=== PATIENT | female | born 1965 | race African-American/Black ===

== ENCOUNTER → 2019-08-15 | Outpatient (CLI) | payer BC ==
[~2019-08-15] MED LIST: REGADENOSON 0.4 MG/5 ML DISP.SYRIN. IV ONE
--- NOTE | 2019-08-15 10:22 | CARD ---
MR#: [id number] Date of Study: 08/15/2019 Ordering Physician: BRAEDEN ANNE, Referring Physician: BRAEDEN ANNE, Tech: Sol Gaona LEONIDAS APPROVED REPORT EXAM: Two-dimensional and M-mode echocardiogram with Doppler and color Doppler. Other Information Quality : Good/low windowHR: 74bpm Rhythm : NSR INDICATION ALMEIDA. Hx: HTN, HLP, DM, COPD. 2D DIMENSIONS RVDd3.3 (2.9-3.5cm)IVSd1.0 (0.7-1.1cm) LVDd3.6 (3.9-5.9cm)LVOT Diameter1.9 (1.8-2.4cm) PWd0.9 (0.7-1.1cm)LVDs2.5 (2.5-4.0cm) FS (%) 30.7 %SV31.8 ml LVEF(%)59.3 (>50%) Aortic Valve AoV Peak Alfonso.96.5cm/Nancy Peak GR.3.7mmHg LVOT Peak Alfonso.74.4cm/sAVA (VMAX)2.19cm2 Mitral Valve MV E Jcbadvyk24.4cm/sMV DECEL FCWT169pe MV A Nnndkdki25.3cm/sE/A Ratio0.8 MV A Otkwwivo923gm Pulmonary Valve PV Peak Lisrqenw67.1cm/s Tricuspid Valve RAP [id number] Pulmonary Vein S1 Csdjbgoc33.3cm/sD2 Twklcvcb96.6cm/s LEFT VENTRICLE The left ventricle is normal size. There is normal left ventricular wall thickness. The left ventricu lar systolic function is normal and the ejection fraction is within normal range. The Ejection Fracti on is 60-65%. There is normal LV segmental wall motion. Transmitral Doppler flow pattern is Grade I-a bnormal relaxation pattern. RIGHT VENTRICLE The right ventricle is normal size. The right ventricular systolic function is normal. ATRIA The left atrium size is normal. The right atrium size is normal. The interatrial septum is intact wit h no evidence for an atrial septal defect or patent foramen ovale as noted on 2-D or Doppler imaging. AORTIC VALVE The aortic valve is normal in structure and function. Doppler and Color Flow revealed no significant aortic regurgitation. There is no significant aortic valvular stenosis. MITRAL VALVE The mitral valve is normal in structure and function. There is no mitral valve stenosis. Doppler and Color-flow revealed mild mitral regurgitation. TRICUSPID VALVE The tricuspid valve is normal in structure and function. Doppler and Color Flow revealed trace tricus pid regurgitation. Unable to assess PA pressures. There is no tricuspid valve stenosis. PULMONIC VALVE Doppler and Color Flow revealed mild pulmonic valvular regurgitation. There is no pulmonic valvular s tenosis. GREAT VESSELS The aortic root is normal in size. The IVC is normal in size and collapses >50% with inspiration. PERICARDIAL EFFUSION There is no evidence of significant pericardial effusion. Critical Notification Critical Value: No <Conclusion> The left ventricular systolic function is normal and the ejection fraction is within normal range. Th e Ejection Fraction is 60-65%. There is normal LV segmental wall motion. Signed by : Darwin Mccollum, Electronically Approved : 08/15/2019 10:22:14
--- NOTE | 2019-08-15 12:31 | RAD ---
MR#: [id number] Date of Study: 08/15/2019 Ordering Physician: BRAEDEN ANNE, Referring Physician: KELLY STORM Tech: RT Kasey JollyR) (N) APPROVED REPORT Test Type: Pharmacological Stress Nurse/Tech: Libra Contreras RN Test Indications: Dyspnea on exertion Cardiac History: Hypertension, Diabetes,COPD (former smoker) Medications: See Electronic Medical Record Medical History: See Electronic Medical Record Resting ECG: SR Resting Heart Rate: 88 bpm Resting Blood Pressure: 177/95mmHg Pretest Chest Pain: No chest pain Nurse/Tech Notes S1,S2 and lungs clear to auscultation. Consent: The procedure was explained to the patient in lay terms. Informed consent was witnessed. Zen eout was entered into ARI. History and Stress Test performed by RT Rik (R) (N) Pharm. Details Pharmacologic stress testing was performed using 0.4mg per 5ml of regadenoson given intravenously ove r 7-10 seconds. Stress Symptoms Nausea POST EXERCISE Reason for Termination: Infusion complete Target HR: No Max HR: 122 bpm 87% of Maximum Predicted HR: 140 bpm Max Blood Pressure: 187/108mmHg Blood Pressure response to exercise: Normal blood pressure response during stress. Heart Rate response to exercise: WNL Chest Pain: No. Arrhythmia: No. ST Change: No. INTERPRETATION Stress EKG Conclusion: No evidence of stress induced EKG changes. Imaging Protocol IMAGE PROTOCOL: Rest Tc-99m/stress Tc-99m 1 day Rest: Stress: Viability: Radiopharm.Tc99m MiutnjhqsLp68t Sestamibi Dose10.7mCi 33mCi Duration 15min. 10min. Img Date 08/15/2019 08/15/2019 Inj-Img Bjgl47bzr. 60min. Rest Admin Site:IV - Right AntecubitalAdministrator:RT Dereck Jolly)(N) Stress Admin Site: IV - Right AntecubitalAdministrator: ETTA Heredia, ARRT (R)(N) STRESS DATA End Diast. Vol.43.0mlAv. Heart Rate94.0bpm End Syst. Vol.10.0mlCO Index BSA0.0L/min Myocardial Mass91.0gEject. Sditefom25.0% Stress Rates Pk. Fill Rate5.24EDV/secLVtime Pk. Fill 103.94msec Pk. Empty Rate6.63ESV/secLVtime Pk. Rrumb985.83msec 1/3 Pk. Fill2.69EDV/sec Stress Scores Regional WT1.00Summed WT4.00 Regional WM0.00Summed WM1.00 The rest and stress images show normal perfusion, normal contraction and thickening. LV Perf. Quant 17 Seg. SSS0.00 17 Seg. SRS0.00 17 Seg. SDS0.00 Stress Defect Extent (% LAD)0.00Rest Defect Extent (% LAD)0.00Rev. Defect Extent (% LAD)0.00 Stress Defect Extent (% LCX) 0.00Rest Defect Extent (% LCX)0.00Rev. Defect Extent (% LCX)0.00 Stress Defect Extent (% RCA)0.00Rest Defect Extent (% RCA)0.00Rev. Defect Extent (% RCA)0.00 Stress Defect Extent (% GHASSAN)0.00Rest Defect Extent (% GHASSAN)0.00Rev. Defect Extent (% GHASSAN)0.00 Other Information Quality:Good Risk Assessment: Low Risk Conclusion 1. No evidence of EKG changes with stress testing. 2. Normal perfusion at stress/rest. 3. Low risk study. 4. EF > 60%. Signed by : Darwin Mccollum, Electronically Approved : 08/15/2019 12:31:22
== END | disposition home or self-care (01) ==
LOC: NM 08:48
PROVIDERS: ATTEND Internal Medicine Cardiovascular Disease
DX: I08.8 Other rheumatic multiple valve diseases (principal); I10 Essential (primary) hypertension; E11.9 Type 2 diabetes mellitus without complications; J44.9 Chronic obstructive pulmonary disease, unspecified; Z79.01 Long term (current) use of anticoagulants; Z87.891 Personal history of nicotine dependence
CPT/HCPCS: 78452; 93017; 93306; A9500; J2785

== ENCOUNTER → 2019-12-30 | Outpatient (CLI) | payer BC ==
[~2019-12-30] MED LIST changes: +ASPI-630 PO; +IOHEXOL 180 MG/ML 10 ML VIAL. ONE; +LISI10TA2 PO; +METF500T16 PO; +NAPR-683 PO; -REGADENOSON 0.4 MG/5 ML DISP.SYRIN. IV ONE; +methylPREDNISolone ACETATE 40 MG/ML VIAL. ONE; +methylPREDNISolone ACETATE 80 MG/ML VIAL. ONE
--- NOTE | 2019-12-30 15:43 | PAIN ---
DATE OF SERVICE: 12/30/2019 INITIAL CONSULTATION FOR PAIN CLINIC CHIEF COMPLAINT: Low back and right greater than left lower extremity pain. HISTORY OF PRESENT ILLNESS: This is a 54-year-old female who presents with history of pain in the low back and the right lower extremity, some on the left as well, but mostly on the right, not the result of any specific injury or action that she is aware of. It has been coming up for about 3 months now, getting worse with pain in the low back radiating to posterior gluteus, posterolateral thigh, lateral anterior thigh, anterior medial thigh, medial lower leg on the right and the ankle on the left, just to the mid thigh. The patient describes the pain as constant, sharp, stabbing, throbbing, shooting with tingling and numbness in the lower extremity, mostly on the right side, worse with walking, standing, changing positions or becomes aching, cramping at times and sometimes at night, it is much worse to awaken her from sleep at least 3 times a night, does not affect her bowel or bladder control, but does affect her ability to walk with significant fatigability in the right lower extremity itself. The patient reports she has been taking naproxen, also did physical therapy within the last 3 years and doing some exercises from that, currently not helping significantly to decrease the pain, where usually it would. The patient rates her disability rating from 0-10, 10 being worst, is a 10 with family and home responsibilities, 6 with recreation, 8 with social activity and occupational activity, 4 sexual behavior, 9 with self-care and 9 with life support activities. The patient did have MRI scan of the lumbar spine showing a focal disk protrusion at L4-L5 with a right foraminal disk protrusion and stenosis seen right foraminal but no evidence of central stenosis. PAST MEDICAL HISTORY: Significant for diabetes type 2, COPD, hypertension, arthritis. PREVIOUS SURGERY: No previous surgeries. CURRENT MEDICATIONS: Include metformin, lisinopril, atorvastatin, Advair, baby aspirin, Ventolin and Spiriva inhaler and also gabapentin, cyclobenzaprine, naproxen and meclizine. ALLERGIES: THE PATIENT IS ALLERGIC TO PENICILLIN AND SOME EARDROPS, SHE IS NOT SURE OF WHAT TYPE. FAMILY HISTORY: Significant for cancers. SOCIAL HISTORY: The patient does not drink alcohol, does not smoke, does not use any illegal, illicit or recreational drugs. She is single, lives locally with 2 children living at home, lives locally in [place], [place]. REVIEW OF SYSTEMS: The patient's review of systems is positive for those items mentioned in history of present illness. All systems reviewed and otherwise negative. It is complete, full and well documented on the patient's chart. PHYSICAL EXAMINATION: VITAL SIGNS: The patient's blood pressure is 176/101, pulse 90, respirations 18, temperature 97.2 degrees Fahrenheit, height is 5 feet 3 inches, weight is 146 pounds. GENERAL: The patient is awake, alert, oriented, appropriate, very pleasant demeanor. HEENT: Exam shows normocephalic, atraumatic. Extraocular movements are intact and symmetrical. Oral cavity shows mucous membranes moist and pink. Dentition is intact. NECK: Shows anterior throat supple without palpable lymphadenopathy noted. Swallow reflex symmetrical. CHEST: Shows normal on inspection. Breath sounds are clear bilaterally. No rales, rhonchi or wheezes auscultated. HEART: Shows S1, S2 clear. No murmurs auscultated. ABDOMEN: Soft, nontender, nondistended. No palpable organomegaly is noted. No rebound or guarding demonstrated. BACK: Shows spine grossly in the midline, normal-appearing cervical lordotic curvature, thoracic kyphotic curvature and lumbar lordotic curvature. Lumbar paraspinous muscle shows symmetrical on inspection, on palpation shows some moderate tenderness diffusely bilaterally, but only diffusely without significant radiation. The patient has good rotational motion of the lumbar spine, both laterally as well as extension and flexion without significant increase in pain. EXTREMITIES: Lower extremities show deep tendon reflexes at 2+ in the patellar, 1+ tendo-calcaneus tendons. Motor exam is 4 on a scale of 5 on the right with dorsiflexion, extension, quadriceps and hamstring flexion with significant pain with hamstring and quadriceps flexion on the right, but not the left, which is 5/5 throughout. Peripheral pulses are 1+ posterior tibia. No peripheral edema is noted. Lower extremities are warm and dry to touch, equal in color and appearance. Straight leg raise noted to be mildly positive on the right about 40 degrees, decreased with knee flexion, left side is negative. Gaenslen's and Vadim's maneuvers are negative bilaterally as well. The patient is able to stand on her toes, gets up without any significant difficulty from the seated position without any assistive devices, walking with a normal-appearing gait, does not appear to favor the right or left lower extremity, again not using any canes or walkers to ambulate. SKIN: The patient's skin shows warm and dry, good turgor. No edema. No sores, rashes or bruising throughout. IMPRESSION: 1. This is a 54-year-old female with about 3-month history of increasing pain, low back, right lower extremity greater than left in a radicular ____. 2. MRI scan of lumbar spine as noted. 3. Type 2 diabetes. 4. Chronic obstructive pulmonary disease. 5. Hypertension. 6. Arthritis. PLAN: Options were discussed with the patient including conservative medical managements, physical therapies and interventional techniques. She would like to pursue interventional techniques. We discussed a lumbar epidural steroid injection using description as well as anatomical models to describe the procedure. Risks were then discussed including, but not limited to bleeding, infection, possibility of epidural hematoma, subsequent neurological compromise, dural puncture, headaches, spinal cord and/or nerve damage, side effects of steroid medication and poor results regarding pain control. The patient understands and wished to proceed. The patient will return to clinic in approximately 2 weeks for followup. She was counseled on return appointment, activity level and side effects to be aware of. DIAGNOSES: Lumbar radiculopathy with lumbar degenerative disk disease and lumbar herniated disk. PROCEDURE: Lumbar epidural steroid injection, translaminar approach at the L4-L5 level using C-arm fluoroscopic guidance under sterile prep and drape using local anesthetic. MEDICATION INJECTED: A total of 120 mg Depo-Medrol plus 10 mL of preservative-free normal saline and 2 mL of contrast. CONDITION AT DISCHARGE: Stable. The patient tolerated the procedure well, had no complications. JOJO GALLARDO MD DR: OBDULIO/clyde JOB#: [id number] / [id number] STEPHANIE Mayers DO
== END ==
LOC: PNCL 10:25
PROVIDERS: ATTEND Anesthesiology
DX: M51.16 Intervertebral disc disorders with radiculopathy, lumbar region (principal); I10 Essential (primary) hypertension; E11.9 Type 2 diabetes mellitus without complications; J44.9 Chronic obstructive pulmonary disease, unspecified; Z87.39 Personal history of other diseases of the musculoskeletal system and connective tissue; Z88.0 Allergy status to penicillin; Z79.84 Long term (current) use of oral hypoglycemic drugs
CPT/HCPCS: 62323; J1030; J1040; Q9965

== ENCOUNTER → 2020-01-20 | Outpatient (CLI) | payer BC ==
--- NOTE | 2020-01-20 10:27 | PAIN ---
DATE OF SERVICE: 01/20/2020 PROGRESS NOTE FOR PAIN CLINIC DIAGNOSES: Lumbar radiculopathy with lumbar degenerative disk disease with lumbar herniated disk. HISTORY OF PRESENT ILLNESS: The patient is a 54-year-old female who returns for followup status post lumbar epidural steroid injection x 1. The patient reports about 50% or more better in the lower extremity and low back on the right side. The patient reports she has been increasing her activity with greater ease and comfort, walking greater distances, doing work activities, household activities with greater ease and comfort, traveling with greater ease. Reports it does not awaken her from sleep. She still has some pain in the right lower extremity and in the low back, but much improved from where it was. The patient reports some pain in the knee as well as the hip on the right side with walking and sitting. The patient reports it is an 8 on a scale of 10 at its worst over the past week, 7 on average, 5 at its least and is a 5 today. The patient reports it is aching, sharp, cramping, on and off in intensity with some tingling in the right leg as well, but no new motor or sensory deficits. The patient reports no bowel or bladder incontinence or other complaints. PHYSICAL EXAMINATION: VITAL SIGNS: The patient's blood pressure 169/106, pulse 87, respirations 18, temperature 98.2 degrees Fahrenheit, height is 5 feet 3 inches, weight is 144 pounds. GENERAL: The patient is awake, alert, oriented, appropriate, very pleasant demeanor. HEENT: Shows normocephalic, atraumatic. Extraocular movements are intact and symmetrical. Oral cavity shows mucous membranes moist and pink. Dentition is intact. NECK: Shows anterior throat supple without palpable lymphadenopathy noted. Swallow reflex symmetrical. CHEST: Shows normal on inspection. Breath sounds are clear. No rales, rhonchi or wheezes auscultated. ABDOMEN: Soft, nontender, nondistended. BACK: Shows spine grossly in the midline. Normal appearing thoracic kyphosis and minor flattening of lumbar lordotic curvature. Lumbar paraspinous muscle shows symmetrical on inspection, with palpation shows some very mild tenderness diffusely in the middle and lower distribution of paraspinous muscles, but only diffusely without radiation. The patient has good rotational motion of lumbar spine laterally as well as extension and flexion without significant increase in pain. EXTREMITIES: Lower extremities show deep tendon reflexes 2+ in the patellar, 1+ tendo-calcaneus tendons. Motor exam is strong with approximately 4 on a scale of 5 on the right with dorsiflexion and extension, 5/5 on the left. Peripheral pulses are 1+. No peripheral edema is noted bilaterally. Options were discussed with the patient. The patient's old chart was reviewed as her current medication regimen updated. Current review of systems updated today as well. We will proceed with a second in the series of lumbar epidural steroid injection today with fluoroscopic guidance. Risks were again discussed including, but not limited to bleeding, infection, possibility of epidural hematoma, subsequent neurological compromise, dural puncture, headaches, spinal cord and/or nerve damage, side effects of steroid medication and poor results regarding pain control. The patient understands and wished to proceed. The patient will return to clinic in approximately 2 weeks for followup. She was counseled on return appointment, activity level and side effects to be aware of. DIAGNOSES: Lumbar radiculopathy with lumbar degenerative disk disease. PROCEDURE: Lumbar epidural steroid injection, translaminar approach at the L4-L5 level using C-arm fluoroscopic guidance under sterile prep and drape using local anesthetic. MEDICATION INJECTED: A total of 120 mg Depo-Medrol plus 10 mL preservative-free normal saline and 2 mL of contrast. CONDITION AT DISCHARGE: Stable. The patient tolerated the procedure well, had no complications. JOJO GALLARDO MD DR: OBDULIO/clyde JOB#: [id number] / [id number]
== END ==
LOC: PNCL 09:33
PROVIDERS: ATTEND Anesthesiology
DX: M51.16 Intervertebral disc disorders with radiculopathy, lumbar region (principal)
CPT/HCPCS: 62323; J1030; J1040; Q9965